=== PATIENT | female | born 1965 | race Caucasian/White ===

== ENCOUNTER 2023-09-12 09:47 | Inpatient (IN) ==
[2023-09-12] MEDS ORDERED: AMIODARONE 150MG / 100ML D5W IV ONE ×2 (10:25→10:43)
[2023-09-12] MEDS ORDERED: AMIODARONE / D5W 150 MG/100 ML BAG IV ONE ×2 (10:30→10:45)
[2023-09-12] MEDS ORDERED: AMIODARONE 360MG / 200ML D5W IV ONE (10:43)
--- NOTE | 2023-09-12 10:44 | XRay Report ---
XR chest 1V portable HISTORY: 58 years-old Female Chest pain, nonspecific COMPARISON: None TECHNIQUE: AP view of the chest FINDINGS: Cardiomediastinal and hilar silhouettes are within normal limits. No pneumothorax, pleural effusion o r airspace consolidation. Bones of the chest appear grossly intact. IMPRESSION: No acute process. ACT 112: Negative or not required by law. The above report was generated using voice recognition software. It may contain grammatical, syntax o r spelling errors. Electronically signed by: Homer Mckenna M.D. 09/12/2023 10:42 AM
--- NOTE | 2023-09-12 10:48 | Emergency Department Note ---
History of Present Illness General Chief complaint: Tachycardia Stated complaint: HYPERTENSION,TACHYCARDIA HR 214,LIGHTHEADED, Time Seen by Provider: 09/12/23 10:18 History of Present Illness 58-year-old female presents emergency department with a complaint of increased heart rate palpitations and dizziness. Patient states that she was getting ready to take her to an appointment and she suddenly had an increase in her heart rate noticed that her Fitbit said that she had a heart rate of 214. Patient does admit to 2 cups of coffee this morning. Patient has a history of hypothyroidism currently on levothyroxine and has had her TSH checked in the past 6 months. Patient denies any nausea vomiting diarrhea any recent illnesses. Patient states that she is extremely healthy and goes for runs daily. Patient denies any potential for dehydration. Patient denies chest pain or shortness of breath. There are no other mitigating or alleviating factors. Patient's had no prior history of V. tach Home Medications Medication Instructions Recorded Confirmed Type cyanocobalamin (vitamin B-12) 1,000 mcg IM MONTHLY 10/10/19 09/12/23 History 1,000 mcg/mL injection kit (B-12 Compliance) ferrous sulfate 325 mg (65 mg 325 mg PO PM 10/10/19 02/12/22 History iron) tablet (FeroSul) azelastine 137 mcg (0.1 %) nasal 1 spray intranasal BID PRN Other 11/19/19 09/12/23 History spray aerosol fluticasone propionate 50 2 spray intranasal DAILY #15.8 mL 05/20/21 02/12/22 Rx mcg/actuation nasal spray,suspension levothyroxine 112 mcg tablet 112 mcg PO DAILY 09/12/23 09/12/23 History Allergies Allergy/AdvReac Type Severity Reaction Status Date / Time Sulfa (Sulfonamide Allergy Verified 05/12/22 07:49 Antibiotics) Past Med/Surg History Medical History (Updated 09/12/23 @ 12:02 by Hero Harrison MD) Temporomandibular joint disorder Slow to wake up after anesthesia WITH SEVERE HEADACHE AFTERWARDS Hypothyroidism Migraine Surgical History History of sinus surgery left maxillary antrostomy with tissue removal-11/23/19-Dr. Umana History of colonoscopy History of hysteroscopy With endometrial ablation History of surgery Excision of finger flexor tendon LEFT HAND Family History Father Hearing loss Mother Hypertension Cancer Breast and malignant neoplasm Allergies Other No family history of bleeding disorder Social History Smoking Status: Never smoker Second Hand Exposure: Yes (mom smoked); Do You Dip or Chew Tobacco: No; Hx Alcohol Use: Yes Hx Substance Use: No Preferred Language: Uzbek Communication Ability: Effective Retort Firer Required: No Beliefs That Will Affect Care: None Current Living Situation: Spouse current occupational status: employed 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 Feels Safe at Home: Yes Assistive Devices: Glasses Review of Systems A total of 10 systems reviewed and were otherwise negative Cardiovascular: no chest pain Neurologic: + dizziness Physical Exam Vital Signs Vital Signs - 24 hr 09/12/23 10:07 09/12/23 10:20 09/12/23 10:21 Temperature 36.6 C Temperature Source Oral Pulse Rate 82 207 H 207 H Pulse Rate from SpO2 Sensor Respiratory Rate 18 18 Respiratory Effort / Characteristics Non-Labored Spontaneous Respiratory Depth Normal Blood Pressure 111/70 Blood Pressure Mean 83 Blood Pressure Position Sitting Pulse Oximetry 100 Oxygen Delivery Method Room Air Sepsis Recent Fever Within 48 Hours No Sepsis New/Unexplained Change in Mental Status N/A Sepsis Action Taken by Nursing No Action Required 09/12/23 10:21 09/12/23 10:24 09/12/23 10:30 Temperature Temperature Source Pulse Rate Pulse Rate from SpO2 Sensor Respiratory Rate Respiratory Effort / Characteristics Respiratory Depth Blood Pressure 135/107 H 134/85 Blood Pressure Mean 113 92 Blood Pressure Position Pulse Oximetry Oxygen Delivery Method Room Air Sepsis Recent Fever Within 48 Hours Sepsis New/Unexplained Change in Mental Status Sepsis Action Taken by Nursing 09/12/23 10:30 09/12/23 10:42 09/12/23 10:42 Temperature Temperature Source Pulse Rate 208 H 200 H Pulse Rate from SpO2 Sensor 90 76 Respiratory Rate 20 20 Respiratory Effort / Characteristics Respiratory Depth Blood Pressure 107/80 Blood Pressure Mean 89 Blood Pressure Position Pulse Oximetry 91 96 Oxygen Delivery Method Sepsis Recent Fever Within 48 Hours Sepsis New/Unexplained Change in Mental Status Sepsis Action Taken by Nursing 09/12/23 10:43 09/12/23 10:45 09/12/23 10:45 Temperature Temperature Source Pulse Rate 203 H Pulse Rate from SpO2 Sensor 78 Respiratory Rate 25 H Respiratory Effort / Characteristics Respiratory Depth Blood Pressure 112/83 Blood Pressure Mean 93 Blood Pressure Position Pulse Oximetry 96 97 Oxygen Delivery Method Room Air Sepsis Recent Fever Within 48 Hours Sepsis New/Unexplained Change in Mental Status Sepsis Action Taken by Nursing 09/12/23 11:00 09/12/23 11:00 09/12/23 11:15 Temperature Temperature Source Pulse Rate 198 H 202 H Pulse Rate from SpO2 Sensor 70 79 Respiratory Rate 26 H 14 Respiratory Effort / Characteristics Respiratory Depth Blood Pressure 113/80 Blood Pressure Mean 99 Blood Pressure Position Pulse Oximetry 95 98 Oxygen Delivery Method Sepsis Recent Fever Within 48 Hours Sepsis New/Unexplained Change in Mental Status Sepsis Action Taken by Nursing 09/12/23 11:22 09/12/23 11:22 09/12/23 11:22 Temperature Temperature Source Pulse Rate 80 194 H Pulse Rate from SpO2 Sensor Respiratory Rate 27 H Respiratory Effort / Characteristics Respiratory Depth Blood Pressure 106/65 Blood Pressure Mean 68 Blood Pressure Position Pulse Oximetry Oxygen Delivery Method Sepsis Recent Fever Within 48 Hours Sepsis New/Unexplained Change in Mental Status Sepsis Action Taken by Nursing 09/12/23 11:23 09/12/23 11:23 09/12/23 11:30 Temperature Temperature Source Pulse Rate 80 74 Pulse Rate from SpO2 Sensor 81 77 Respiratory Rate 20 23 Respiratory Effort / Characteristics Respiratory Depth Blood Pressure 104/73 Blood Pressure Mean 90 Blood Pressure Position Pulse Oximetry 100 100 Oxygen Delivery Method Sepsis Recent Fever Within 48 Hours Sepsis New/Unexplained Change in Mental Status Sepsis Action Taken by Nursing 09/12/23 11:30 09/12/23 11:34 09/12/23 11:45 Temperature Temperature Source Pulse Rate 200 H 67 Pulse Rate from SpO2 Sensor 68 Respiratory Rate 23 Respiratory Effort / Characteristics Respiratory Depth Blood Pressure 121/84 Blood Pressure Mean 96 Blood Pressure Position Pulse Oximetry 100 Oxygen Delivery Method Sepsis Recent Fever Within 48 Hours Sepsis New/Unexplained Change in Mental Status Sepsis Action Taken by Nursing 09/12/23 11:45 Temperature Temperature Source Pulse Rate Pulse Rate from SpO2 Sensor Respiratory Rate Respiratory Effort / Characteristics Respiratory Depth Blood Pressure 121/79 Blood Pressure Mean 99 Blood Pressure Position Pulse Oximetry Oxygen Delivery Method Sepsis Recent Fever Within 48 Hours Sepsis New/Unexplained Change in Mental Status Sepsis Action Taken by Nursing GENERAL: Patient is awake alert in no acute distress patient is resting comfortably and showing no signs of anxiety EYES: The conjunctivae are clear. The pupils are round and reactive. EARS, NOSE, MOUTH AND THROAT: The nose is without any evidence of any deformity. Mucous membranes are moist. Tongue is midline. NECK: The neck is nontender and supple. RESPIRATORY: Normal respiratory effort is noted there is no evidence of wheezing rhonchi or rales CARDIOVASCULAR: Tachycardic, regular noted there no murmurs rubs or gallops normal S1 normal S2. GASTROINTESTINAL: The abdomen is soft. Abdomen is nontender. BACK: No midline tenderness or or step-off noted range of motion in flexion extension as well as rotation no signs of muscle spasm noted MUSCULOSKELETAL/EXTREMITIES: There is no evidence of gross deformity full range of motion is noted in the hips and shoulders. SKIN: There is no obvious evidence of any rash. There are no petechiae, pallor or cyanosis noted. NEUROLOGIC: Patient is awake alert and oriented x3 strength is symmetric Psych; Mildly anxious Course Reevaluation(s) Reevaluation #1: Patient was started on IV amiodarone, was also given metoprolol, had an episode in which she converted to sinus rhythm after being on a bedpan to urinate. Cardiology was at bedside we are actually preparing to cardiovert this patient with procedural sedation as well. Patient is hemodynamically stable at 1146 Time: 11:46 Reevaluation #2: Patient reevaluated by me at bedside patient is in no distress currently patient is in a sinus rhythm and he is normotensive. Time: 12:12 Consultations Consultation #1: Case was discussed with Dr. Hinton at 11:05 AM - will see patient at bedside Time: 11:15 Consultation #2: Case was discussed with Dr. Peter for admission Time: 11:50 Administered Medications Amiodarone HCl/Dextrose (Nexterone / D5w) 360 mg in 200 mls @ 33.333 mls/hr IV .Q6H [facility] Stop: 09/12/23 17:14 Last Admin: 09/12/23 11:33 Dose: Not Given Documented By: HS Discontinued Medications Amiodarone HCl/Dextrose (Amiodarone 150mg / 100ml D5w) Confirm Administered Dose 150 mg IV .STK-MED ONE Stop: 09/12/23 10:26 Last Admin: 09/12/23 10:31 Dose: 150 mg Documented By: AMS Co-signed By: AK Amiodarone HCl/Dextrose (Amiodarone 360mg / 200ml D5w) Confirm Administered Dose 360 mg IV .STK-MED ONE Stop: 09/12/23 10:44 Last Admin: 09/12/23 11:10 Dose: 360 mg Documented By: AMS Co-signed By: HS Amiodarone HCl/Dextrose (Amiodarone 150mg / 100ml D5w) Confirm Administered Dose 150 mg IV .STK-MED ONE Stop: 09/12/23 10:44 Last Admin: 09/12/23 10:54 Dose: 150 mg Documented By: AMS Co-signed By: AK Etomidate (Etomidate 2 Mg/Ml 20 Ml Vial) Confirm Administered Dose 40 mg IV .STK-MED ONE Stop: 09/12/23 11:20 Last Admin: 09/12/23 11:35 Dose: Not Given Documented By: HS Amiodarone HCl/Dextrose (Nexterone / D5w) 150 mg in 100 mls @ 600 mls/hr IV TODAY@1030 ONE Stop: 09/12/23 10:39 Last Admin: 09/12/23 11:34 Dose: Not Given Documented By: HS Amiodarone HCl/Dextrose (Nexterone / D5w) 150 mg in 100 mls @ 600 mls/hr IV .EXTRA DOSE ONE Stop: 09/12/23 10:54 Last Admin: 09/12/23 11:34 Dose: Not Given Documented By: HS Metoprolol Tartrate (Metoprolol Tartrate 1 Mg/Ml Vial) Confirm Administered Dose 5 mg IV .STK-MED ONE Stop: 09/12/23 11:13 Last Admin: 09/12/23 11:35 Dose: Not Given Documented By: HS Metoprolol Tartrate (Metoprolol Tartrate 1 Mg/Ml Vial) 2.5 mg IV NOW STA Stop: 09/12/23 11:16 Last Admin: 09/12/23 11:34 Dose: 2.5 mg Documented By: HS Critical Care Time Critical Care Time: Yes Total Critical Care Time: 45 I have personally spent greater than 45 minutes of critical care time in the direct management of this patient. This includes bedside care, interpretation of diagnostic studies, and testing, discussion with consultants, patient, and family members, and other required patient management activities. These minutes are in excess of all separately billable procedures. Medical Decision Making Medical Records Attestation: I reviewed the patient's medical records. Home Medications Current Medication List: was personally reviewed by me Laboratory Data Attestation: I reviewed the patient's lab results. Labs interpreted by me are unremarkable 09/12/23 10:15 09/12/23 10:15 Lab Results 09/12/23 Range/Units 10:15 WBC 6.08 (4.8-10.8) K/ul RBC 5.44 H (4.20-5.40) M/uL Hgb 15.9 (12.0-16.0) g/dl Hct 47.7 H (37.0-47.0) % MCV 87.7 (80.0-100.0) fL MCH 29.2 (25.0-34.0) pg MCHC 33.3 (32.0-36.0) g/dL RDW Std Deviation 40.1 (36.4-46.3) fL RDW Coeff of Bethany 12.5 (11.5-14.5) % Plt Count 249 (130-400) K/uL MPV 11.0 (9.4-12.4) fL Immature Gran % (Auto) 0.3 % Neut % (Auto) 61.7 % Lymph % (Auto) 27.6 % Labette % (Auto) 8.1 % Eos % (Auto) 1.0 % Baso % (Auto) 1.3 % Neut # (Auto) 3.75 (1.40-6.50) K/uL Lymph # (Auto) 1.68 (1.20-3.40) K/uL Labette # (Auto) 0.49 (0.11-0.59) K/uL Eos # (Auto) 0.06 (0.00-0.50) K/uL Baso # (Auto) 0.08 (0.00-0.20) K/uL Immature Gran # (Auto) 0.02 (0.01-0.20) K/uL PT 11.1 (9.0-12.0) Seconds INR 1.0 (0.9-1.1) APTT 29.3 (21.0-31.0) Seconds PTT Ratio 1.0 D-Dimer 330 (0-500) ug/L FEU Sodium 139 (136-145) mmol/L Potassium 4.2 (3.5-5.1) mmol/L Chloride 103 (98-107) mmol/L Carbon Dioxide 28 (21-32) mmol/L Anion Gap 8 (3-11) BUN 19 (6-23) mg/dl Creatinine 0.83 (0.6-1.2) mg/dl Est Cr Clr Drug Dosing 73.6 ml/min Est GFR ( Amer) 89.5 ml/min Est GFR (Non-Af Amer) 77.2 ml/min BUN/Creatinine Ratio 22.9 H (10-20) Glucose 113 H (70-99(Fasting)) mg/dl Calcium 10.0 (8.6-10.3) mg/dl Magnesium 2.2 (1.7-2.4) mg/dl Total Bilirubin 1.6 H (0.2-1.0) mg/dl AST 18 (13-39) U/L ALT 13 (7-52) U/L Alkaline Phosphatase 90 (34-104) U/L Troponin I High Sens 4.2 (0-14) pg/ml Total Protein 7.6 (6.0-8.3) gm/dl Albumin 4.9 (3.4-5.0) gm/dl Globulin 2.7 (2.5-4.0) gm/dl Albumin/Globulin Ratio 1.8 (0.9-2) Lipase 35 (11-82) U/L TSH 0.517 (0.300-4.500) uIu/ml Imaging Data Attestation: I personally reviewed and interpreted this imaging study as follows: My Impression: Chest x-ray interpreted by me unremarkable Radiologist's Impression: Chest X-Ray 09/12/23 10:19 XR chest 1V portable HISTORY: 58 years-old Female Chest pain, nonspecific COMPARISON: None TECHNIQUE: AP view of the chest FINDINGS: Cardiomediastinal and hilar silhouettes are within normal limits. No pneumothorax, pleural effusion or airspace consolidation. Bones of the chest appear grossly intact. IMPRESSION: No acute process. ACT 112: Negative or not required by law. The above report was generated using voice recognition software. It may contain grammatical, syntax or spelling errors. Electronically signed by: Homer Mckenna M.D. 09/12/2023 10:42 AM ECG Data Attestation: I personally reviewed and interpreted this ECG as follows: Additional Comments: EKG interpreted by me wide-complex tachycardia with a rate of 204 versus SVT with a Spence C, no obvious ST segment elevation can be seen due to tachycardia, normal axis EKG #2 at 11:26 AM, interpreted by me, the patient has a sinus rhythm with a first-degree AV block with occasional PVCs no obvious ST segment elevation or depression, normal axis Telemetry was ordered by me, interpreted as wide-complex tachycardia rate of 208 MDM Narrative Medical decision making differential diagnosis includes ventricular tachycardia, SVT with aberrancy, wide-complex tachycardia, hypothyroidism, electrolyte abnormality, metabolic derangement, acute coronary syndrome Plan is to check labs, EKG, chest x-ray Patient was started on amiodarone due to the monomorphic wide-complex tachycardia. The case was discussed with cardiology from [facility], they were at bedside patient as well. Patient has no evidence of thyroid storm or significant hypothyroidism at this time. The etiology of the patient's cardiac dysrhythmia is currently unknown. Patient will be admitted for further investigation. Patient is hemodynamically stable for admission at 12 PM Pt heart score is a 3 I have reviewed the patient's prior electrolytes from the past 2 years. The patient's at bedside provided me bedside history of the patient having an increased heart rate after they were getting ready to go to his actual rn case management appointment today Disposition plan is to admit for further cardiac evaluation Impression & Plan Wide-complex tachycardia Discharge Plan Visit Data Chief Complaint: Tachycardia Stated Complaint: HYPERTENSION,TACHYCARDIA HR 214,LIGHTHEADED, ED Provider: Jonathan Cespedes Discharge Problem: Wide-complex tachycardia Patient Disposition: Admitted As Inpatient Forms Stand Alone Forms: My [facility] Prescriptions Prescriptions: No Action fluticasone propionate 50 mcg/actuation spray,suspension 2 spray intranasal DAILY Qty: 15.8 6RF Rx Instructions: not able to verify administer 2 sprays into each nostril daily ferrous sulfate [FeroSul] 325 mg (65 mg iron) tablet 325 mg PO PM Rx Instructions: not able to verify B-12 Compliance 1,000 mcg/mL kit 1,000 mcg IM MONTHLY azelastine 137 mcg (0.1 %) aerosol,spray 1 spray INTNAS BID PRN (Reason: Other) levothyroxine 112 mcg tablet 112 mcg PO DAILY Referrals Referrals: Anselmo Huffman MD [Primary Care Provider] -
[2023-09-12 10:57] LABS: Basophils # (auto) 0.08 K/uL (0.00-0.20); Basophils % (auto) 1.3 %; Eosinophils # (auto) 0.06 K/uL (0.00-0.50); Hematocrit (blood only) 47.7 % (37.0-47.0); Hemoglobin 15.9 g/dl (12.0-16.0); Immature Granulocytes # (auto) 0.02 K/uL (0.01-0.20); Immature Granulocytes % (auto) 0.3 %; Lymphocytes # (auto) 1.68 K/uL (1.20-3.40); Lymphocytes % (auto) 27.6 %; Mean Corpuscular Hemoglobin 29.2 pg (25.0-34.0); Mean Corpuscular Hgb Conc 33.3 g/dL (32.0-36.0); Mean Corpuscular Volume 87.7 fL (80.0-100.0); Monocytes # (auto) 0.49 K/uL (0.11-0.59); Monocytes % (auto) 8.1 %; Neutrophils # (auto) 3.75 K/uL (1.40-6.50); Neutrophils % (auto) 61.7 %; Platelet Count 249 K/uL (130-400); RDW Coefficient of Variation 12.5 % (11.5-14.5); RDW Standard Deviation 40.1 fL (36.4-46.3); Red Blood Count 5.44 M/uL (4.20-5.40); White Blood Count 6.08 K/ul (4.8-10.8)
[2023-09-12 11:02] LABS: Albumin Globulin Ratio 1.8 (0.9-2); Albumin Level 4.9 gm/dl (3.4-5.0); BUN Creatinine Ratio 22.9 (10-20); Bilirubin,Total 1.6 mg/dl (0.2-1.0); Creatinine Clr Calc Pharmacy 73.6 ml/min; Est GFR (African American) 89.5 ml/min; Est GFR (Non-African American) 77.2 ml/min; Globulin 2.7 gm/dl (2.5-4.0); Magnesium 2.2 mg/dl (1.7-2.4); Potassium 4.2 mmol/L (3.5-5.1); Total Protein 7.6 gm/dl (6.0-8.3)
[2023-09-12 11:06] LABS: Troponin I High Sensitivity 4.2 pg/ml (0-14)
[2023-09-12 11:09] LABS: D Dimer 330 ug/L FEU (0-500); Partial Thromboplastin Time 29.3 Seconds (21.0-31.0); Prothrombin Time 11.1 Seconds (9.0-12.0)
[2023-09-12] MEDS ORDERED: METOPROLOL TARTRATE 1 MG/ML VIAL IV ONE (11:12)
[2023-09-12 11:15] LABS: Thyroid Stimulating Hormone 0.517 uIu/ml (0.300-4.500)
[2023-09-12] MEDS ORDERED: AMIODARONE / D5W 360 MG/200 ML BAG IV SCH ×2 (11:15→17:15)
[2023-09-12] MEDS ORDERED: METOPROLOL TARTRATE 1 MG/ML VIAL IV STA (11:15)
[2023-09-12] MEDS ORDERED: ETOMIDATE 2 MG/ML 20 ML VIAL IV ONE (11:19)
--- NOTE | 2023-09-12 12:07 | History & Physical Report ---
Date of Service September 12, 2023 Assessment & Plan (1) Wide-complex tachycardia: Plan: Wide-complex monomorphic tachycardia No inciting trauma, no anginal/ischemic symptoms, avid runner with good exercise tolerance. No recent illness. Magnesium/potassium normal is with hyperthyroidism with down titration of Synthroid due to borderline suppressed TSH levels as noted. No evidence of PE/DD negative.Trop wnl. Converted after 300 mg total load of amiodarone without electrical cardioversion. +receive 2.5 mg IV Lopressor with subsequent borderline hypotension, defer additional beta-hafsa per discussion with cardiology. continue amiodarone drip Echo pending. May require EP study, cardiology continuing to follow. Appreciate recommendations. Clears while eval for this pending. Optimize magnesium 4.0, magnesium 2.0 Chest pain-free on reevaluation EKG postconversion consistent with sinus, PVC is noted (2) Hypothyroidism: Plan: TSH is normal, free T4 is pending. Synthroid was down titrated as an outpatient from 150 mcg 10/21 to 137 mcg 01/20, 125mcg 04/22, 112 mcg 06/22. TSH remains borderline suppressed, will hold x1 and resume at 100 mcg 09/13 (3) Pernicious anemia: Plan: - Continue outpatient monthly B12 supplementation. Hemoglobin 15.9, normocytic on admit Plan DVT prophylaxis: Lovenox Disposition: PCU CODE STATUS: Full code Diet: Clears pending echo and evaluation for EP followup study History of Present Illness Primary Care Provider: Anselmo Huffman MD Gem is a 58yo F with a past medical history of sinusitis recently completing 10 days of Augmentin 1 month ago, insomnia on trazodone as needed, hypothyroidism recently with TSH down titrated at last PCP visit who presents with wide-complex tachycardia with rates greater than 200. She received 2 boluses of amiodarone 150 for 300 total and subsequent drip was started, she was pending electrical cardioversion when she converted to sinus rhythm with micturition. Etomidate was ordered but not given, she did not require electrical cardioversion. She does not have any history of tachyarrhythmia. Potassium is normal, magnesium is 2.2. Gem is seen at the bedside while in the ER. She reports she was with her at Dr. Duvall ophthalmology office for an appointment for her for cataract evaluation and was noted to have a heart rate of over 200. She notes her exercise monitor also had indicated that she had had a heart rate of between 190 and 200 just since that morning. She did not have any chest pain or chest pressure, but did have a feeling of her heart racing. No shortness of breath. She reports that she has not had any exertional chest pain or shortness of breath leading up to this episode, and she is an avid runner with no issues with exercise tolerance. She does have a history of hyperthyroidism for which her Synthroid is gradually being down titrated due to borderline low TSH levels. She takes a B12 supplement for pernicious anemia, otherwise has no medical problems and specifically has no history of hypertension, hyperlipidemia, diabetes, A-fib, a flutter, or arrhythmia. No family history of SCD, parents with history of atrial arrhythmia/atrial fibrillation in older age. At bedside she feels completely back to normal. While in the ER she received amiodarone and a dose of metoprolol IV 2.5 as noted. She has converted to sinus rhythm, did become borderline hypotensive in the low 100s systolics with metoprolol but on recheck feels well with a systolic pressure of 120s on reassessment Medical History: Reviewed Medications: Reviewed Surgical History: Reviewed Family history: Reviewed Allergies: Reviewed Social History: No tobacco/etoh/rec drug use Code Status: Full Allergies Allergy/AdvReac Type Severity Reaction Status Date / Time Sulfa (Sulfonamide Allergy Verified 05/12/22 07:49 Antibiotics) Home Medications Medication Instructions Recorded Confirmed Type cyanocobalamin (vitamin B-12) 1,000 mcg IM MONTHLY 10/10/19 09/12/23 History 1,000 mcg/mL injection kit (B-12 Compliance) ferrous sulfate 325 mg (65 mg 325 mg PO PM 10/10/19 02/12/22 History iron) tablet (FeroSul) azelastine 137 mcg (0.1 %) nasal 1 spray intranasal BID PRN Other 11/19/1909/12 History spray aerosol fluticasone propionate 50 2 spray intranasal DAILY #15.8 mL 05/20/21 02/12/22 Rx mcg/actuation nasal spray,suspension levothyroxine 112 mcg tablet 112 mcg PO DAILY 09/12/23 09/12/23 History Past Med/Surg History Medical History (Updated 09/12/23 @ 12:02 by Hero Harrison MD) Temporomandibular joint disorder Slow to wake up after anesthesia WITH SEVERE HEADACHE AFTERWARDS Hypothyroidism Migraine Surgical History History of sinus surgery left maxillary antrostomy with tissue removal-11/23/19-Dr. Umana History of colonoscopy History of hysteroscopy With endometrial ablation History of surgery Excision of finger flexor tendon LEFT HAND Family History Father Hearing loss Mother Hypertension Cancer Breast and malignant neoplasm Allergies Other No family history of bleeding disorder Social History Smoking Status: Never smoker Second Hand Exposure: Yes (mom smoked); Do You Dip or Chew Tobacco: No; Hx Alcohol Use: Yes Hx Substance Use: No Preferred Language: Iranian Communication Ability: Effective Television News Reporter Required: No Beliefs That Will Affect Care: None Current Living Situation: Spouse current occupational status: employed 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 NAD. Cooperative. HEENT: Atraumatic, normocephalic. Vision/hearing intact Pulm: CTAB A&P. -wheezes, -rales, -rhonchi. Symmetrical chest rise. No increased work of breathing. No respiratory distress. Cardiac: RRR, -mrg. Radial pulses intact and symmetrical. Abdominal: Nontender, nondistended, soft. BS present. Ext: warm, dry. No edema. Results & Data Results & Data Vital Signs (Past 12 Hours) Vital Signs Temp Pulse Resp BP Pulse Ox O2 Del Method 09/12/23 11:45 121/79 09/12/23 11:45 67 23 100 09/12/23 11:34 200 H 09/12/23 11:30 121/84 09/12/23 11:30 74 23 100 09/12/23 11:23 80 20 100 09/12/23 11:23 104/73 09/12/23 11:22 194 H 27 H 09/12/23 11:22 106/65 09/12/23 11:22 80 11/13/23 11:15 202 H 14 98 09/12/23 11:00 198 H 26 H 95 09/12/23 11:00 113/80 09/12/23 10:45 112/83 09/12/23 10:45 203 H 25 H 97 09/12/23 10:43 96 Room Air 09/12/23 10:42 200 H 20 96 09/12/23 10:42 107/80 09/12/23 10:30 208 H 20 91 09/12/23 10:30 134/85 09/12/23 10:24 Room Air 09/12/23 10:21 135/107 H 09/12/23 10:21 207 H 18 09/12/23 10:20 207 H 09/12/23 10:07 36.6 C 82 18 111/70 100 Room Air PG Care Time/CCT Total # of Minutes Spent Total Time Spent with Patient: Total time spent is greater than 50% in coordination of care (as documented) at patient's floor/unit and/or counseling patient: Coding Level of Care Code 40788 INT INP/OBS CARE 3/75MIN Diagnoses Wide-complex tachycardia R00.0 Hypothyroidism E03.9 Pernicious anemia D51.0
--- NOTE | 2023-09-12 14:02 | Cardiology Consultation ---
Date of Consultation September 12, 2023 Assessment & Plan (1) Wide-complex tachycardia: Plan 58-year-old generally healthy woman with abrupt onset wide-complex tachycardia with no significant prodrome or evidence of metabolic or other precipitating factors. Unclear whether vagal stimulus from need to urinate or medications (amiodarone/metoprolol) or combination resulted in reversion to sinus rhythm. Initially IV amiodarone continued to ensure rhythm control, since her rhythm has been quiescent for a number of hours now could transition to oral beta-hafsa therapy. Recommend metoprolol tartrate 25 mg p.o. every 6 hours (hold for SBP<85 mmHG or HR<45 bpm), could stop IV amiodarone after first oral dose of metoprolol given. Some degree of mild sinus bradycardia may need to be tolerated given her athletic physiology and baseline low heart rate. Review of ECG with Dr. Liao and Dr. Morales suggests RVOT type ventricular tachycardia (also known as repetitive monomorphic VT). 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 Echocardiogram was unremarkable, no evidence of underlying structural heart disease. Continue on telemetry overnight while shifting from amiodarone to oral beta- hafsa, if she tolerates medication well without further dysrhythmia or major ectopy she likely could be discharged home tomorrow with outpatient plans for VT ablation at [facility]. History of Present Illness Reason for Consultation: Wide-complex tachycardia. Requesting Physician: Jonathan Cespedes DO Attending Physician: Hero Tobin MD History of Present Illness Generally healthy 58-year-old with no cardiac history or onset of tachypalpitations 8:30 AM with both Fitbit and cardiac monitoring indicating heart rate greater than 200 bpm, and ECG showing wide-complex tachycardia who was admitted for further cardiac evaluation. At recent baseline, she is generally very healthy and runs up to 3 miles at a time fairly routinely as well as periodically in half marathons. She has not noted any chest discomfort, dyspnea on exertion, or prior palpitations. Althou gh she had no symptoms aside from tachypalpitations, given the extremely high heart rates she reported to the emergency department where she received 2 boluses of amiodarone 150 mg and initiation of maintenance infusion and 2.5 mg of IV metoprolol. She maintained a low normal BP during this time and felt reasonably well. However, she had increasing sensation of a full bladder and began to feel "queasy" and lightheaded, sedation was ordered (but not administered) for potential electrical cardioversion when she abruptly converted to sinus rhythm at 86 bpm with infrequent PVCs. Medical history notable for hypothyroidism (on replacement). Family history negative for dysrhythmias or sudden cardiac . Grandparents with CHF. Subsequently, she recovered to the point that she felt well and had no somatic complaints. Telemetry over the last few hours has been completely benign. Allergies Allergy/AdvReac Type Severity Reaction Status Date / Time Sulfa (Sulfonamide Allergy Verified 05/12/22 07:49 Antibiotics) Home Medications Medication Instructions Recorded Confirmed Type cyanocobalamin (vitamin B-12) 1,000 mcg IM MONTHLY 10/10/19 09/12/23 History 1,000 mcg/mL injection kit (B-12 Compliance) ferrous sulfate 325 mg (65 mg 325 mg PO PM 10/10/19 02/12/22 History iron) tablet (FeroSul) azelastine 137 mcg (0.1 %) nasal 1 spray intranasal BID PRN Other 11/19/19 09/12/23 History spray aerosol fluticasone propionate 50 2 spray intranasal DAILY #15.8 mL 05/20/21 02/12/22 Rx mcg/actuation nasal spray,suspension levothyroxine 112 mcg tablet 112 mcg PO DAILY 09/12/23 09/12/23 History trazodone 50 mg tablet 25 mg PO HS PRN INSOMNIA 09/12/23 09/12/23 History Patient History Medical History Temporomandibular joint disorder Slow to wake up after anesthesia WITH SEVERE HEADACHE AFTERWARDS Hypothyroidism Migraine Surgical History History of sinus surgery left maxillary antrostomy with tissue removal-11/23/19-Dr. Umana History of colonoscopy History of hysteroscopy With endometrial ablation History of surgery Excision of finger flexor tendon LEFT HAND Family History Father Hearing loss Mother Hypertension Cancer Breast and malignant neoplasm Allergies Other No family history of bleeding disorder Social History Smoking Status: Never smoker Second Hand Exposure: Yes (mom smoked); Do You Dip or Chew Tobacco: No; Hx Alcohol Use: Yes Hx Substance Use: No Preferred Language: Burkinan Communication Ability: Effective Corrosion Control Engineer Required: No Beliefs That Will Affect Care: None Current Living Situation: Spouse current occupational status: employed 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 BP normotensive. Pulse 68 bpm and regular. Skin: no ecchymoses or generalized lesions. HEENT: unremarkable. Neck: JVP at the clavicle at 90 degrees, no carotid bruits. Lungs: clear. Cardiac: regular rhythm, normal S1-2, no murmur. Abdomen: benign. Extremities: no edema, pulses intact. Neurologic: normal affect and conversation, nonfocal. Results & Data Laboratory Results Troponin 4.2. Normal CBC. Normal electrolytes with potassium 4.2 and magnesium 2.2, BUN 19, creatinine 0.83. TSH 0.517. Diagnostic Findings Initial ECG showed monomorphic wide-complex tachycardia at 205 bpm. Repeat ECG after conversion showed sinus rhythm at 74 bpm with occasional PVCs and PACs. Normal QTc, no evidence of Brugada or other baseline abnormality. Chest x-ray showed top normal heart size, otherwise unremarkable. Echocardiogram showed normal left ventricular size with low normal systolic function (EF 50 to 55%) with normal wall motion and normal mitral inflow pattern. Normal RV size and systolic function. Mild tricuspid regurgitation with normal right ventricular systolic pressure. No prior study for comparison. PG Care Time/CCT Total # of Minutes Spent Total Time Spent with Patient: Total time spent is greater than 50% in coordination of care (as documented) at patient's floor/unit and/or counseling patient: Coding Level of Care Code 73903 IN/OBS CONSULT LVL 4,60M Diagnoses Wide-complex tachycardia R00.0
[2023-09-12] MEDS ORDERED: ACETAMINOPHEN 325 MG TAB PO PRN (14:05)
--- NOTE | 2023-09-12 15:32 | XCELERA ---
[id number]
--- NOTE | 2023-09-12 16:36 | Electrocardiogram Report ---
Test Reason : Blood Pressure : / mmHG Vent. Rate : 209 BPM Atrial Rate : 000 BPM P-R Int : 000 ms QRS Dur : 186 ms QT Int : 296 ms P-R-T Axes : 000 105 235 degrees QTc Int : 552 ms Wide QRS tachycardia - possibly RVOT ventricular tachycardia Rightward axis Left bundle branch block /Inferior axis Abnormal ECG When compared with ECG of 13-NOV-2019 13:02, Wide QRS tachycardia has replaced Sinus rhythm Vent. rate has increased BY 151 BPM Confirmed by Jeffery Hinton ([id number]) on 09/12/2023 4:36:09 PM Referred By: REFERRED SELF Confirmed By:Jeffery Hinton
--- NOTE | 2023-09-12 16:38 | Electrocardiogram Report ---
Test Reason : Blood Pressure : / mmHG Vent. Rate : 074 BPM Atrial Rate : 074 BPM P-R Int : 256 ms QRS Dur : 078 ms QT Int : 394 ms P-R-T Axes : 087 031 054 degrees QTc Int : 437 ms Sinus rhythm with 1st degree A-V block with Premature supraventricular complexes and with occasional Premature ventricular complexes Abnormal ECG When compared with ECG of 12-Sep-2023 10:16; Wide QRS tachycardia no longer present HR has decreased by 135 bpm Confirmed by Jeffery Hinton ([id number]) on 09/12/2023 4:37:49 PM Referred By: REFERRED SELF Confirmed By:Jeffery Hinton
[2023-09-12] MEDS: METOPROLOL TARTRATE 25 MG TAB PO SCH ×2 (17:12→23:41)
[2023-09-13] MEDS: METOPROLOL TARTRATE 25 MG TAB PO SCH ×2 (06:35→11:40)
[2023-09-13 08:31] LABS: Basophils # (auto) 0.05 K/uL (0.00-0.20); Eosinophils # (auto) 0.07 K/uL (0.00-0.50); Eosinophils % (auto) 1.4 %; Hematocrit (blood only) 43.5 % (37.0-47.0); Hemoglobin 14.3 g/dl (12.0-16.0); Immature Granulocytes # (auto) 0.01 K/uL (0.01-0.20); Immature Granulocytes % (auto) 0.2 %; Lymphocytes # (auto) 1.22 K/uL (1.20-3.40); Lymphocytes % (auto) 24.7 %; Mean Corpuscular Hemoglobin 28.9 pg (25.0-34.0); Mean Corpuscular Hgb Conc 32.9 g/dL (32.0-36.0); Mean Corpuscular Volume 87.9 fL (80.0-100.0); Monocytes # (auto) 0.41 K/uL (0.11-0.59); Monocytes % (auto) 8.3 %; Neutrophils # (auto) 3.17 K/uL (1.40-6.50); Neutrophils % (auto) 64.4 %; Platelet Count 200 K/uL (130-400); RDW Coefficient of Variation 12.4 % (11.5-14.5); RDW Standard Deviation 39.8 fL (36.4-46.3); Red Blood Count 4.95 M/uL (4.20-5.40); White Blood Count 4.93 K/ul (4.8-10.8)
[2023-09-13 08:40] LABS: BUN Creatinine Ratio 19.5 (10-20); Calcium 9.5 mg/dl (8.6-10.3); Creatinine Clr Calc Pharmacy 74.5 ml/min; Est GFR (African American) 90.8 ml/min; Est GFR (Non-African American) 78.3 ml/min; Potassium 3.9 mmol/L (3.5-5.1)
--- NOTE | 2023-09-13 11:58 | Cardiology Progress Note ---
Date of Service September 13, 2023 Assessment & Plan (1) Ventricular tachycardia: Plan As noted, patient appears to have structurally normal heart with RVOT type ventricular tachycardia which should be responsive to beta-hafsa therapy. Recommend changing metoprolol to metoprolol succinate 50 mg daily. Okay for discharge, follow-up with Dr. Liao in 1 month. He will arrange follow-up with [facility] lead cook (likely Dr. Brown) for ventricular tachycardia ablation evaluation. Given the patient's athletic lifestyle, this may be a preferable option to lifelong beta-hafsa therapy. Admission and Anticipated Discharge Date Admission Date: September 12, 2023 Subjective Uneventful night. No recurrence of dysrhythmia. Brief ventricular ectopy for short period after conversion to sinus yesterday, no significant ectopy overnight. She feels well. No chest pain, dyspnea, palpitations, or lightheadedness. Physical Exam Physical Exam: No distress. BP normotensive (111/80 mmHg). Pulse 59 bpm and regular without ectopy. Skin: no ecchymoses or generalized lesions. HEENT: unremarkable. Neck: JVP at the clavicle at 90 degrees, no carotid bruits. Lungs: clear. Cardiac: regular rhythm, normal S1-2, no murmur. Abdomen: benign. Extremities: no edema, pulses intact. Neurologic: normal affect and conversation, nonfocal. Results & Data Vital Signs (Past 12 Hours) Vital Signs Temp Pulse Pulse Resp BP BP Pulse Ox 09/13/23 11:33 98.6 F 59 L 18 111/71 111/80 98 09/13/23 10:07 58 L 09/13/23 07:57 98.6 F 59 L 18 111/80 98 09/13/23 04:32 98.1 F 57 L 14 111/71 98 O2 Del Method 09/13/23 11:33 09/13/23 10:07 09/13/23 07:57 Room Air 09/13/23 04:32 Room Air Laboratory Results Normal electrolytes, BUN 16, creatinine 0.82. PG Care Time/CCT Total # of Minutes Spent Total Time Spent with Patient: Total time spent is greater than 50% in coordination of care (as documented) at patient's floor/unit and/or counseling patient: Coding Level of Care Code 18170 SUB INP/OBS CARE 2/35MIN Diagnoses Ventricular tachycardia I47.20
--- NOTE | 2023-09-13 12:31 | Discharge Summary ---
Date of Service September 13, 2023 Admission HPI Per Admitting Provider Gem is a 58yo F with a past medical history of sinusitis recently completing 10 days of Augmentin 1 month ago, insomnia on trazodone as needed, hypothyroidism recently with TSH down titrated at last PCP visit who presents with wide-complex tachycardia with rates greater than 200. She received 2 boluses of amiodarone 150 for 300 total and subsequent drip was started, she was pending electrical cardioversion when she converted to sinus rhythm with micturition. Etomidate was ordered but not given, she did not require electrical cardioversion. She does not have any history of tachyarrhythmia. Potassium is normal, magnesium is 2.2. Gem is seen at the bedside while in the ER. She reports she was with her at Dr. Duvall ophthalmology office for an appointment for her for cataract evaluation and was noted to have a heart rate of over 200. She notes her exercise monitor also had indicated that she had had a heart rate of between 190 and 200 just since that morning. She did not have any chest pain or chest pressure, but did have a feeling of her heart racing. No shortness of breath. She reports that she has not had any exertional chest pain or shortness of breath leading up to this episode, and she is an avid runner with no issues with exercise tolerance. She does have a history of hyperthyroidism for which her Synthroid is gradually being down titrated due to borderline low TSH levels. She takes a B12 supplement for pernicious anemia, otherwise has no medical problems and specifically has no history of hypertension, hyperlipidemia, diabetes, A-fib, a flutter, or arrhythmia. No family history of SCD, parents with history of atrial arrhythmia/atrial fibrillation in older age. At bedside she feels completely back to normal. While in the ER she received amiodarone and a dose of metoprolol IV 2.5 as noted. She has converted to sinus rhythm, did become borderline hypotensive in the low 100s systolics with metoprolol but on recheck feels well with a systolic pressure of 120s on reassessment Medical History: Reviewed Medications: Reviewed Surgical History: Reviewed Family history: Reviewed Allergies: Reviewed Social History: No tobacco/etoh/rec drug use Code Status: Full Principal Diagnosis wide complex tachycardia Discharge Exam The patient is awake, alert and oriented 3, well developed and well nourished, normocephalic and atraumatic, lying in bed and in no acute distress. HEENT--PERRL, EOMI, mucous membranes and oropharynx mildly dry Neck--supple. No JVD. No bruits. Thyroid normal, trachea midline, no adenopathy. Heart--normal S1 and S2. No murmurs, rubs or gallops. Lungs--clear bilaterally, no respiratory distress, no accessory muscle use. Abdomen--normal bowel sounds and soft. Mild epigastric and left sided abdominal pain Extremities--no cyanosis or clubbing. No edema. Dermatologic--normal skin turgor, normal color, no abnormal lymph nodes, no rash. Neurologic--cranial nerves II through XII grossly intact. Rheumatologic--normal range of motion. Psychiatric--normal affect. Discharge Data Allergies Allergy/AdvReac Type Severity Reaction Status Date / Time Sulfa (Sulfonamide Allergy Verified 05/12/22 07:49 Antibiotics) Consultations 09/12/23 11:29 ED Decision to Admit Stat 09/12/23 14:05 Consult Cardiology Routine Hospital Course (1) Wide-complex tachycardia: Wide-complex monomorphic tachycardia No inciting trauma, no anginal/ischemic symptoms, avid runner with good exercise tolerance. No recent illness. Magnesium/potassium normal is with hyperthyroidism with down titration of Synthroid due to borderline suppressed TSH levels as noted. No evidence of PE/DD negative.Trop wnl. Converted after 300 mg total load of amiodarone without electrical cardioversion. +receive 2.5 mg IV Lopressor with subsequent borderline hypotension, defer additional beta-hafsa per discussion with cardiology. continue amiodarone drip Echo pending. May require EP study, cardiology continuing to follow. Appreciate recommendations. Clears while eval for this pending. Optimize magnesium 4.0, magnesium 2.0 Chest pain-free on reevaluation EKG postconversion consistent with sinus, PVC is noted -Evaluated by cardiology, suggest d/c on metoprolol Succinate 50mg daily -Outpatient follow up with Dr Noble for ablation (2) Hypothyroidism: TSH is normal, free T4 is pending. Synthroid was down titrated as an outpatient from 150 mcg 10/21 to 137 mcg 01/20, 125mcg 04/22, 112 mcg 06/22. TSH remains borderline suppressed, will hold x1 and resume at 100 mcg 09/13 (3) Pernicious anemia: - Continue outpatient monthly B12 supplementation. Hemoglobin 15.9, normocytic on admit Plan DVT prophylaxis: Lovenox Disposition: PCU CODE STATUS: Full code Diet: Clears pending echo and evaluation for EP followup study Total Time Total Time Spent Total Time Spent (In Minutes): 35 Discharge Plan Discharge Items Patient Disposition: Home - Self-Care Reason For Visit: WIDE COMPLEX TACHYCARDIA Discharge Diagnosis: wide complex tachycardia Activity: Per Instructions section Activity Comment: No strenous activity Non-emergency contact: Primary Care Provider and See Supervisor Call non-emergency contact if: you have any medication questions Follow-up/Referrals: Jerrell Noble MD [Physician] - 10/13/23 10:30 am Anselmo Huffman MD [Primary Care Provider] - 09/23/23 9:00 am Diet: Regular Addtl Attending Provider Instructions: Please make appointment to follow up with Dr Noble Pending Studies at Discharge: No Stand-Alone Forms: [facility] [employer], Smoking Cessation Medications and DC Order Prescriptions: New metoprolol succinate 50 mg tablet extended release 24 hr 50 mg PO DAILY Qty: 30 0RF Continued fluticasone propionate 50 mcg/actuation spray,suspension 2 spray intranasal DAILY Qty: 15.8 6RF Rx Instructions: not able to verify administer 2 sprays into each nostril daily ferrous sulfate [FeroSul] 325 mg (65 mg iron) tablet 325 mg PO PM Rx Instructions: not able to verify B-12 Compliance 1,000 mcg/mL kit 1,000 mcg IM MONTHLY azelastine 137 mcg (0.1 %) aerosol,spray 1 spray INTNAS BID PRN (Reason: Other) levothyroxine 112 mcg tablet 112 mcg PO DAILY trazodone 50 mg tablet 25 mg PO HS PRN (Reason: INSOMNIA ) Discharge Orders: Discharge Order (Routine); Ordered 09/13/23 Ordered By: Parveen Harris Admission Data Admit Date/Time: 09/12/23 11:38 Attending Provider: Parveen Harris Admit Provider: Hero Harrison Primary Care Provider: Anselmo Huffman Other Providers: Hero Harrison; Jamaal,Jeffery F. Other Interventions: Discharge Summary Assessment (RN) Last Done: 09/13/23 11:33 Coding Level of Care Code 99253 INP/OBS DISCH >30 MIN Diagnoses Wide-complex tachycardia R00.0 Hypothyroidism E03.9 Pernicious anemia D51.0 Time Spent (min) 35
--- NOTE | 2023-09-13 15:43 | Cardiology Consultation ---
Date of Consultation September 13, 2023 Assessment & Plan (1) Ventricular tachycardia: 1. Ventricular tachycardia: Her ventricular tachycardia appears to originate in the right ventricular outflow tract, this can sometimes be associated with right ventricular abnormalities however these were not seen on echocardiography but that is not accurate. A cardiac MRI may be indicated but we do not do those at our institution. Ablation is likely a good alternative for her, she does not seem to have clear structural heart disease, has a very rapid and symptomatic arrhythmia and may have had only one episode although it is possible she has brief asymptomatic episodes since she tolerates it very well and is relatively asymptomatic initially. We need to perform monitoring to see whether she has background ectopy, I would like to wait several days to let the amiodarone metabolize and we are going to start low-dose beta-blockade (metoprolol succinate 50 mg daily). I will arrange the Holter monitor through our office for later this week. I am going to arrange referral to [facility] for consideration of ablation or further diagnostic studies. 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 From the cardiovascular standpoint she has done very well, she has not had difficulty with exertion or chest discomfort however developed sudden onset of palpitations while she was getting ready to go to work (not while exercising) and on her Fitbit noted that her heart rate was over 200 bpm. This remained and she came into the emergency room on the morning of September 12, 2023. Her initial electrocardiogram showed a wide-complex tachycardia at 209 bpm, it was a left bundle inferiorly directed arrhythmia which based on morphology was likely a right ventricular outflow tract origin. The arrhythmia was sustained, preparations were being made to electrically convert when the rhythm stopped spontaneously. She was however given intravenous amiodarone and in the emergency room for short time she had frequent premature ventricular beats of the same morphology. She has no prior history of these symptoms, however she was not terribly symptomatic with it. She became aware of it over some period of time is therefore possible she has brief episodes that she is unaware of. She did not have presyncope or syncope with it however was dizzy. She does have a history of hypothyroidism and is on thyroid replacement, otherwise she has little in the way of health issues. She has been active recently with no change in her exercise ability. An echocardiogram done on the afternoon September 12, 2023 shows low normal left ventricular function with ejection fraction of 50 to 55% and normal right ventricular size and function. No valvular abnormalities. A troponin done in the emergency room was normal. Allergies Allergy/AdvReac Type Severity Reaction Status Date / Time Sulfa (Sulfonamide Allergy Verified 05/12/22 07:49 Antibiotics) Home Medications Medication Instructions Recorded Confirmed Type cyanocobalamin (vitamin B-12) 1,000 mcg IM MONTHLY 10/10/19 09/12/23 History 1,000 mcg/mL injection kit (B-12 Compliance) ferrous sulfate 325 mg (65 mg 325 mg PO PM 10/10/19 02/12/22 History iron) tablet (FeroSul) azelastine 137 mcg (0.1 %) nasal 1 spray intranasal BID PRN Other 11/19/19 09/12/23 History spray aerosol fluticasone propionate 50 2 spray intranasal DAILY #15.8 mL 05/20/21 02/12/22 Rx mcg/actuation nasal spray,suspension levothyroxine 112 mcg tablet 112 mcg PO DAILY 09/12/23 09/12/23 History trazodone 50 mg tablet 25 mg PO HS PRN INSOMNIA 09/12/23 09/12/23 History metoprolol succinate 50 mg 50 mg PO DAILY #30 tabs 09/13/23 Rx tablet,extended release 24 hr Patient History Medical History Temporomandibular joint disorder Slow to wake up after anesthesia WITH SEVERE HEADACHE AFTERWARDS Hypothyroidism Migraine Surgical History History of sinus surgery left maxillary antrostomy with tissue removal-11/23/19-Dr. Umana History of colonoscopy History of hysteroscopy With endometrial ablation History of surgery Excision of finger flexor tendon LEFT HAND Family History Father Hearing loss Mother Hypertension Cancer Breast and malignant neoplasm Allergies Other No family history of bleeding disorder Social History Smoking Status: Never smoker Second Hand Exposure: No; Do You Dip or Chew Tobacco: No; Hx Alcohol Use: No Hx Substance Use: No Preferred Language: Danish Communication Ability: Effective Change Room Attendant Required: No Beliefs That Will Affect Care: None Current Living Situation: Spouse current occupational status: employed 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 HEENT: Unremarkable Neck: No jugular venous distention, carotid pulses are normal and equal bilaterally without bruits. Pulmonary: Clear to auscultation bilaterally. Cardiac: Regular rhythm with no murmur, gallop or rub. Abdomen: Soft, nontender with normal bowel sounds. Extremities: No edema. Distal pulses intact. Neurologic: No focal findings. Gait is steady. Skin: No rash, ecchymoses or petechiae. Results & Data Vital Signs (Past 12 Hours) Vital Signs Temp Pulse Pulse Resp BP BP Pulse Ox 09/13/23 11:33 37.0 C 59 L 18 111/71 111/80 98 09/13/23 10:07 58 L 09/13/23 07:57 37.0 C 59 L 18 111/80 98 09/13/23 04:32 36.7 C 57 L 14 111/71 98 O2 Del Method 09/13/23 11:33 09/13/23 10:07 09/13/23 07:57 Room Air 09/13/23 04:32 Room Air Laboratory Results CBC 09/13/23 Range/Units 07:19 WBC 4.93 (4.8-10.8) K/ul RBC 4.95 (4.20-5.40) M/uL Hgb 14.3 (12.0-16.0) g/dl Hct 43.5 (37.0-47.0) % Plt Count 200 (130-400) K/uL Neut # (Auto) 3.17 (1.40-6.50) K/uL Lymph # (Auto) 1.22 (1.20-3.40) K/uL [place] # (Auto) 0.41 (0.11-0.59) K/uL Eos # (Auto) 0.07 (0.00-0.50) K/uL Baso # (Auto) 0.05 (0.00-0.20) K/uL Comprehensive Metabolic Panel 09/13/23 Range/Units 07:19 Sodium 142 (136-145) mmol/L Potassium 3.9 (3.5-5.1) mmol/L Chloride 109 H (98-107) mmol/L Carbon Dioxide 28 (21-32) mmol/L BUN 16 (6-23) mg/dl Creatinine 0.82 (0.6-1.2) mg/dl Glucose 83 (70-99(Fasting)) mg/dl Calcium 9.5 (8.6-10.3) mg/dl Diagnostic Findings Telemetry: Initially ventricular tachycardia, for a short time frequent prematur e ventricular beats and after that no significant ventricular ectopy at all. PG Care Time/CCT Total # of Minutes Spent Total Time Spent with Patient: Total time spent is greater than 50% in coordination of care (as documented) at patient's floor/unit and/or counseling patient: Coding Level of Care Code 67843 IN/OBS CONSULT LVL 4,60M Diagnoses Ventricular tachycardia I47.20
--- OUTSIDE RECORDS SUMMARY | 2023-09-14 09:40 | External Medical Summary | Continuity of Care Document ---
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 Role Phone Anselmo Huffman Primary Care Physician [phone] [id number] Date(s): 04/05/23 - 04/05/23 [facility] [address] [facility] 303 [facility] 1 [place], [place] [phone] Encounter Diagnosis Hypothyroidism, unspecified(Final) - Discharge Disposition: Home or Self Care Attending Physician: MD Huffman Christopher Referring Physician: MD Huffman Christopher Allergies, Adverse Reactions, Alerts Substance Reaction Severity Status sulfa drugs rash Active Immunizations Given and Recorded Vaccine Date Status Refusal Reason influenza virus vaccine, inactivated 07/31/22 Fer rded influenza virus vaccine, inactivated 08/26/21 Give n influenza virus vaccine, inactivated 1 08/19/20 Re corded influenza virus vaccine, inactivated 12/05/19 Give n influenza virus vaccine, inactivated 09/06/16 Give n SARS-CoV-2 mRNA (Pfizer 12+) bivalent 2 07/19/22 R ecorded SARS-CoV-2 (COVID-19) mRNA-1273 vaccine 3 09/21/21 Recorded SARS-CoV-2 (COVID-19) mRNA-1273 vaccine 01/22/21 R ecorded SARS-CoV-2 (COVID-19) mRNA-1273 vaccine 12/24/20 R ecorded zoster vaccine, inactivated 08/26/21 Given zoster vaccine, inactivated 4 05/15/20 Given measles/mumps/rubella virus vaccine 05/15/20 Given tetanus/diphtheria/pertuss, acel (Tdap) 06/28/18 G iven tetanus toxoids-diphtheria, Td (Adult) 02/03/07 Re corded 1Result Comment: [facility] Elif Holt 2Result Comment: 2023-01-10: Historical information-source unspecified 3Result Comment: 2023-01-10: Historical information-source unspecified 4Result Comment: Suspension 5TH3L 09/18/21 Medications azelastine 205.5 mcg/inh (0.15%) nasal spray Start: 03/18/23 9:49:00 EDT, See Instructions, Disp# 30 unknown unit, Refills: 1, ADMINISTER 1 SPRAY IN EACH NOSTRIL TWICE A DAY NEEDED FOR ALLERGY SYMPTOMS FOR 30 DAYS, Pharmacy: [id number] Start Date: 03/18/23 Status: Ordered Claritin-D 24 Hour oral tablet, extended release Start: 07/04/18 14:12:00 EDT, 1 tab, PO, Daily, Disp# 90 tab, Refills: 3, PRN: as needed for allergy symptoms, [id number] Start Date: 07/04/18 Status: Ordered cyanocobalamin 1000 mcg/mL injectable solution Start: 10/14/22 11:27:00 EST, See Instructions, Disp# 3 mL, Refills: 3, INJECT 1ML INTO SKIN EVERY 30 DAYS, [id number] Start Date: 10/14/22 Status: Ordered fluticasone 50 mcg/inh nasal spray See Instructions, Disp# 48 mL, Refills: 3, SPRAY 1 SPRAY IN EACH NOSTRIL DAILY, Pharmacy: [facility] [id number], 174.2, cm, 05/15/20 7:56:00 EDT, Height Start Date: 06/13/20 Status: Ordered Imitrex 25 mg oral tablet Start: 02/28/19 11:43:00 EDT, 1 tab, PO, ONCE, Disp# 9 tab, PRN: as needed for migraine headache Start Date: 02/28/19 Status: Ordered Iron Chews Start: 05/10/17 9:00:00 Start Date: 05/10/17 Status: Ordered levothyroxine 125 mcg (0.125 mg) oral tablet Start: 04/07/23 19:05:00 EDT, 1 tab, PO, Daily, Disp# 90 tab, Refills: 1, Pharmacy: [facility] #[id number] Start Date: 04/07/23 Stop Date: 10/04/23 Status: Ordered traZODone 50 mg oral tablet Start: 01/10/23 15:30:00 EDT, 0.5 tab, PO, qhs, Disp# 45 tab, Refills: 1, PRN: insomnia, Pharmacy: [id number] Start Date: 01/10/23 Stop Date: 07/09/23 Status: Ordered Problem List Condition Confirmation Course Effective Dates Status Health St atus Informant TMJ arthritis Confirmed Active Hypothyroidism Confirmed Active Iron deficiency Confirmed Active Anemia, pernicious Confirmed Active Anemia, pernicious Confirmed Active Procedures Procedure Date Related Diagnosis Body Site Status Mammogram 1 04/13/21 Completed Mammogram - screening 2 04/06/18 C ompleted Hysterectomy and bilateral salpingo-oophorectomy sample 3 09/30/15 C ompleted Colonoscopy 4 05/23/15 Completed Tendon repair by distal insertion 5 Completed 1[facility] facility recommends a yearly mammogram on all women above the age of 40 2Negative 3removed cervix 4Mild to moderate diverticular disease. No polyps or masses. 5L flexor tendon (1st digit) Results Laboratory List Name Date Thyroid Stimulating Hormone (TSH) 04/05/23 Most recent to oldest [Reference Range]: 1 TSH [0.47-4.68 uIU/mL] 0.05 uIU/mL 1 *LOW* (04/05/23 8:41 AM) 1Result Comment: Testing Performed By: Dept of Pathology [facility] [address], [address] [facility], [place] [address] Social History Social History Type Response Smoking Status Never smoked cigaret ozzy Sex Female Patient Care team information Care Team Personnel Name: MD Huffman Christopher Position: Physician - Family Med Member Role: Primary Care Provider Address: Address: [address] [place] [id number] [place] Care Team Related Persons Name: THEO GUTIERREZ Address: home [address] [place], [place] [phone] Name: THEO GUTIERREZ Address: home [address] [place], [place] [id number]
--- OUTSIDE RECORDS SUMMARY | 2023-09-14 09:40 | External Medical Summary | Continuity of Care Document ---
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 Phone Anselmo Huffman Primary Care Physician [phone] Encounter [facility] [id number] Date(s): 06/27/23 - 06/27/23 [facility] [address] [address] [phone] Encounter Diagnosis Chronic insomnia(Discharge Diagnosis) - 06/27/23 Hypothyroidism(Discharge Diagnosis) - 06/27/23 Hip pain, right(Discharge Diagnosis) - 06/27/23 Body mass index [BMI] 22.0-22.9, adult(Discharge Diagnosis) - 06/27/23 Hypothyroidism, unspecified(Final) - Discharge Disposition: Home or Self Care Attending Physician: MD Huffman Christopher Allergies, Adverse Reactions, Alerts Substance Reaction Severity Status sulfa drugs rash Active Assessment and Plan Extracted from: Title:FCM - thyroid, gluteal pain, sleep Author: MD Huffman Christopher Date:06/27/23 1.Chronic insomnia Chronic condition, stable Goal:maintain goodsleep Data:non Plan: - encourage good sleep hygeine and consider re-addition of trazodone based on ability to adhere 2.Hypothyroidism Chronic condition exacerbated/progressive/side effects of treatment Goal:~1 TSH Data:TSH Plan: - will recheck TSH and consider titration of levothyroxine based on results, likely down titrate with goal of 1 3.Hip pain, right Chronic condition, stable Goal:resolution Data:none Plan: - encourage engage w/ PT exercise and avoid worsening symptoms if able Immunizations Given and Recorded Vaccine Date Status Refusal Reason influenza virus vaccine, inactivated 07/31/22 Fer rded influenza virus vaccine, inactivated 08/26/21 Give n influenza virus vaccine, inactivated 1 08/19/20 Re corded influenza virus vaccine, inactivated 12/05/19 Give n influenza virus vaccine, inactivated 09/06/16 Give n SARS-CoV-2 mRNA ([facility] 12+) bivalent 2 07/19/22 R ecorded SARS-CoV-2 (COVID-19) mRNA-1273 vaccine 3 09/21/21 Recorded SARS-CoV-2 (COVID-19) mRNA-1273 vaccine 01/22/21 R ecorded SARS-CoV-2 (COVID-19) mRNA-1273 vaccine 12/24/20 R ecorded zoster vaccine, inactivated 08/26/21 Given zoster vaccine, inactivated 4 05/15/20 Given measles/mumps/rubella virus vaccine 05/15/20 Given tetanus/diphtheria/pertuss, acel (Tdap) 06/28/18 G iven tetanus toxoids-diphtheria, Td (Adult) 02/03/07 Re corded 1Result Comment: [facility] Elif Holt 2Result Comment: 2023-01-10: Historical information-source unspecified 3Result Comment: 2023-01-10: Historical information-source unspecified 4Result Comment: Suspension 5TH3L 09/18/21 Medications azelastine 205.5 mcg/inh (0.15%) nasal spray Start: 03/18/23 9:49:00 EDT, See Instructions, Disp# 30 unknown unit, Refills: 1, ADMINISTER 1 SPRAY IN EACH NOSTRIL TWICE A DAY NEEDED FOR ALLERGY SYMPTOMS FOR 30 DAYS, Pharmacy: [facility] ST[id number] Start Date: 03/18/23 Status: Ordered cyanocobalamin 1000 mcg/mL injectable solution Start: 10/14/22 11:27:00 EST, See Instructions, Disp# 3 mL, Refills: 3, INJECT 1ML INTO SKIN EVERY 30 DAYS, Pharmacy: [facility]/pharmacy #[id number] Start Date: 10/14/22 Status: Ordered fluticasone 50 mcg/inh nasal spray See Instructions, Disp# 48 mL, Refills: 3, SPRAY 1 SPRAY IN EACH NOSTRIL DAILY, Pharmacy: [facility] [id number], 174.2, cm, 05/15/20 7:56:00 EDT, Height Start Date: 8/14/20 Status: Ordered Imitrex 25 mg oral tablet Start: 02/28/19 11:43:00 EDT, 1 tab, PO, ONCE, Disp# 9 tab, PRN: as needed for migraine headache Start Date: 02/28/19 Status: Ordered Iron Chews Start: 05/10/17 9:00:00 Start Date: 05/10/17 Status: Ordered levothyroxine 112 mcg (0.112 mg) oral tablet Start: 06/28/23 16:08:00 EDT, 1 tab, PO, Daily, Disp# 90 tab, Refills: 1, Pharmacy: [facility]/pharmacy #[id number] Start Date: 06/28/23 Stop Date: 12/25/23 Status: Ordered Mental Status 06/27/23 Barriers to Learning one year None evide nt Mandatory Health Literacy Documentation Yes Health Literacy Communication Barriers N ever Primary Language Danish Problem List Condition Confirmation Course Effective Dates Status Health St atus Informant TMJ arthritis Confirmed Active Hypothyroidism Confirmed Active Iron deficiency Confirmed Active Anemia, pernicious Confirmed Active Anemia, pernicious Confirmed Active Diagnosis Diagnosis Type Effective Dates Health Status Clinical Service Informant Hip pain, right Discharge Diagnosis 06/27/23 Hypothyroidism Discharge Diagnosis 06/27/23 Chronic insomnia Discharge Diagnosis 06/27/23 Body mass index [BMI] 22.0-22.9, adult Discharge Diagnosis 06/27/23 Non-Specified Procedures Procedure Date Related Diagnosis Body Site Status Mammogram 1 04/13/21 Completed Mammogram - screening 2 04/06/18 C ompleted Hysterectomy 09/30/15 Completed Hysterectomy and bilateral salpingo-oophorectomy sample 3 09/30/15 C ompleted Colonoscopy 4 05/23/15 Completed Tendon repair by distal insertion 5 Completed 1[facility] facility recommends a yearly mammogram on all women above the age of 40 2Negative 3removed cervix 4Mild to moderate diverticular disease. No polyps or masses. 5L flexor tendon (1st digit) Vital Signs Most recent to oldest [Reference Range]: 1 Height 173 cm (06/27/23 2:58 PM) Patient Weight 66.4 kg (06/27/23 2:58 PM) Body Mass Index 22.19 kg/m2 (06/27/23 2:58 PM) Temperature [36.5-37.9 DegC] 36.7 DegC (06/27/23 2:58 PM) Respiratory Rate 20 br/min (06/27/23 2:58 PM) Blood Pressure 120/70mmHg (06/27/23 2:58 PM) Cuff Pulse Pressure 50 mmHg (06/27/23 2:58 PM) BP Location # 1 Right Arm (06/27/23 2:58 PM) Social History Social History Type Response Smoking Status Never smoked cigaret ozzy Sex Female FCM Outpt Note * MD Nathanael, Anselmo: PERFORM Event Display: FCM Outpt Note Authored Date: [id number] Chief Complaint Pt is here for 3-4 month f/u on her thyroid. No new concerns. History of Present Illness Hypothyroidism w/ last TSH in Mar of 0.05 (L) h/o pernicious anemia w/ nl CBC in December 2022 The patient is a 57-year-old female who presents for evaluation of multiple medical concerns. She is sleeping okay. She is taking melatonin. She sleeps well for the first 3 hours. The more she exercises, the better off she is. She is tolerating Her medial glutes on the right side are doing good. She does not do lateral movements or lateral strength anymore which has been the problem. She was set up with some exercise. She has been about 75 percent adherent with it. She is able to run and exercise for her stress reduction. She denies any trouble with being tired during the day. She has gained 2 pounds. She had her mammogram on Tuesday, and it was fine. She denies any swelling, lumps, or bumps. Physical Exam Vitals & Measurements T:36.7C RR:20 BP:120/70 SpO2:98% HT:173cm WT:66.400kg(Dosing) WT:66.4kg BMI:22.19 PHQ2 Data(Data Documented on:06/27/2023 14:56) Emotional health assessment NEGATIVE General: _Alert and oriented, No acute distress Cardiovascular: _Normal rate, Regular rhythm, No murmur, No gallop. Respiratory: _Lungs are clear to auscultation, Respirations are non-labored, Breath sounds are equal Psych: Mood-affect congruence. Reports no SI/HI. Speech is of normal pace and content HEENT: _ Normocephalic, TM clear, Nl gross hearing, moist oral mucosa _ Assessment/Plan 1.Chronic insomnia Chronic condition, stable Goal:maintain goodsleep Data:non Plan: - encourage good sleep hygeine and consider re-addition of trazodone based on ability to adhere 2.Hypothyroidism Chronic condition exacerbated/progressive/side effects of treatment Goal:~1 TSH Data:TSH Plan: - will recheck TSH and consider titration of levothyroxine based on results, likely down titrate with goal of 1 3.Hip pain, right Chronic condition, stable Goal:resolution Data:none Plan: - encourage engage w/ PT exercise and avoid worsening symptoms if able Problem List/Past Medical History Ongoing Anemia, pernicious Anemia, pernicious Hypothyroidism Iron deficiency TMJ arthritis Historical Neck muscle strain Neck pain Procedure/Surgical History Mammogram (04/13/2021)Mammogram - screening (04/06/2018)Hysterectomy and bilateral salpingo-oophorectomy sample (09/30/2015)Hysterectomy (09/30/2015)Colonoscopy (05/23/2015)Tendon repair by distal insertion Medications azelastine nasal(azelastine 205.5 mcg/inh (0.15%) nasal spray), See Instructions carbonyl iron(Iron Chews) cyanocobalamin(cyanocobalamin 1000 mcg/mL injectable solution), See Instructions, 3 refills fluticasone nasal(fluticasone 50 mcg/inh nasal spray), See Instructions levothyroxine(levothyroxine 125 mcg (0.125 mg) oral tablet), 125 mcg= 1 tab, PO, Daily, 1 refills SUMAtriptan(Imitrex 25 mg oral tablet), 25 mg= 1 tab, PO, ONCE, PRN Allergies sulfa drugsrash Social History Smoking Status Never smoked cigarettes Alcohol - Low Risk Use:Current Frequency:1-2 times per year Has alcohol use interfered with work or home life:No Do you ever drink more than intended:No Has anyone been hurt or at risk by your drinking:No Concerns about alcohol use in household:No 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 Cardiovascular disease: Mother. Hypertension: Mother. Immune defect: Father. Health Status Family Member(s) Immunizations Vaccine Date Status influenza virus vaccine, inactivated 07/31/2022 Recorded SARS-CoV-2 mRNA (Pfizer 12+) bivalent 07/19/2022 Recorded Comments : 2023-01-10: Historical information-source unspecified SARS-CoV-2 (COVID-19) mRNA-1273 vaccine 09/21/2021 Recorded Comments : 2023-01-10: Historical information-source unspecified influenza virus vaccine, inactivated 08/26/2021 Given zoster vaccine, inactivated 08/26/2021 Given SARS-CoV-2 (COVID-19) mRNA-1273 vaccine 01/22/2021 Recorded SARS-CoV-2 (COVID-19) mRNA-1273 vaccine 12/24/2020 Recorded influenza virus vaccine, inactivated 08/19/2020 Recorded Comments : [facility] [address] zoster vaccine, inactivated 05/15/2020 Given Comments : Suspension 5TH3L 09/18/21 measles/mumps/rubella virus vaccine 05/15/2020 Given influenza virus vaccine, inactivated 12/05/2019 Given tetanus/diphtheria/pertuss, acel (Tdap) 06/28/2018 Given influenza virus vaccine, inactivated 09/06/2016 Given tetanus toxoids-diphtheria, Td (Adult) 02/03/2007 Recorded Recommendations Health Maintenance Pending(in the next year) OverDue Adult Influenza Vaccine due04/30/23and every 1year Due Adult COVID-19 Vaccination due06/27/23Unknown Frequency Due In Future Lipid Screening not due until01/15/24and every 1year Breast Cancer Screening not due until06/11/24and every 731day Body Mass Index not due until06/26/24and every 1year Satisfied(in the past 1 year) Satisfied Adult COVID-19 Vaccination on07/19/22.Satisfied by MD Huffman Christopher Adult Influenza Vaccine on07/31/22.Satisfied by MD Huffman Christopher Body Mass Index on06/27/23.Satisfied by ANGELA Benitez Paula Lipid Screening on01/14/23.Satisfied by Contributor_system, [id number] Electronic Signature on File Electronically Reviewed/Signed by: Anselmo Huffman MD Author Signature Dt/Tm:06/27/2023 03:55 PM Department of Family Medicine Patient Care team information Care Team Personnel Name: MD Nathanael, Anselmo Position: Physician - Family Med Member Role: Primary Care Provider Address: Address: [address] [place] [address] Care Team Related Persons Name: THEO GUTIERREZ Address: home [address] [place] [phone] Name: THEO GUTIERREZ Address: home [address] [place] [phone]
--- OUTSIDE RECORDS SUMMARY | 2023-09-14 09:40 | External Medical Summary | Continuity of Care Document ---
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 Role Phone Anselmo Huffman Primary Care Physician [phone] [facility] [id number] Date(s): 08/03/23 - 08/03/[address] [address] [phone] Encounter Diagnosis Body mass index [BMI] 21.0-21.9, adult(Discharge Diagnosis) - 08/03/23 Sinusitis(Discharge Diagnosis) - 08/03/23 Discharge Disposition: Home or Self Care Attending Physician: MD Taylor Juan Allergies, Adverse Reactions, Alerts Substance Reaction Severity Status sulfa drugs rash Active Assessment and Plan Extracted from: Title:Office Visit Note Author:MD Taylor Juan Quan e:08/03/23 1.Sinusitis Rx augmentin 875mg BID x 10 days. Immunizations Given and Recorded Vaccine Date Status [...] Td (Adult) 02/03/07 Re corded 1Result Comment: TRIPP Elif Holt 2Result Comment: 2023-01-10: Historical information-source unspecified 3Result Comment: 2023-01-10: Historical information-source unspecified 4Result Comment: Suspension 5TH3L 09/18/21 Medications Augmentin 875 mg-125 mg oral tablet Start: 08/03/23 14:41:00 EDT, amoxicillin 1 tab, PO, q12h, Disp# 20, Refills: 0, with food or milk,Pharmacy: [facility]/pharmacy #[id number] Start Date: 08/03/23 Stop Date: 08/13/23 Status: Ordered azelastine 205.5 mcg/inh (0.15%) nasal spray Start: 03/18/23 9:49:00 EDT, See Instructions, Disp# 30 unknown unit, Refills: 1, ADMINISTER 1 SPRAY IN EACH NOSTRIL TWICE A DAY NEEDED FOR ALLERGY SYMPTOMS FOR 30 DAYS, Pharmacy: [facility] STORE [id number] Start Date: 03/18/23 Status: Ordered cyanocobalamin 1000 mcg/mL injectable solution Start: 10/14/22 11:27:00 EST, See Instructions, Disp# 3 mL, Refills: 3, INJECT 1ML INTO SKIN EVERY 30 DAYS, Pharmacy: [facility]/pharmacy #[id number] Start Date: 10/14/22 Status: Ordered fluticasone 50 mcg/inh nasal spray See Instructions, Disp# 48 mL, Refills: 3, SPRAY 1 SPRAY IN EACH NOSTRIL DAILY, Pharmacy: [facility] [id number], 174.2, cm, 05/15/20 7:56:00 EDT, Height Start Date: 06/13/20 Status: Ordered levothyroxine 112 mcg (0.112 mg) oral tablet Start: 06/28/23 16:08:00 EDT, 1 tab, PO, Daily, Disp# 90 tab, Refills: 1, Pharmacy: [facility]/pharmacy #[id number] Start Date: 06/28/23 Stop Date: 12/25/23 Status: Ordered Mental Status 08/03/23 Barriers to Learning one year None evide nt Mandatory Health Literacy Documentation Yes Health Literacy Communication Barriers N ever Primary Language Malagasy Problem List Condition Confirmation Course Effective Dates Status Health St atus Informant TMJ arthritis Confirmed Active Hypothyroidism Confirmed Active Iron deficiency Confirmed Active Anemia, pernicious Confirmed Active Anemia, pernicious Confirmed Active Diagnosis Diagnosis Type Effective Dates Health Status Cl inical Service Informant Sinusitis Discharge Diagnosis 08/03/23 Body mass index [BMI] 21.0-21.9, adult Discharge Diagnosis 08/03/23 Non-Specified Procedures Procedure Date Related Diagnosis Body Site Status Mammogram 1 04/13/21 Completed Mammogram - screening 2 04/06/18 C ompleted Hysterectomy 09/30/15 Completed Hysterectomy and bilateral salpingo-oophorectomy sample 3 09/30/15 C ompleted Colonoscopy 4 05/23/15 Completed Tendon repair by distal insertion 5 Completed 1[facility] facility recommends a yearly mammogram on all women above the age of 40 2Negative 3removed cervix 4Mild to moderate diverticular disease. No polyps or masses. 5L flexor tendon (1st digit) Vital Signs Most recent to oldest [Reference Range]: 1 Height 173 cm (08/03/23 2:26 PM) Patient Weight 65.6 kg (08/03/23 2:26 PM) Body Mass Index 21.92 kg/m2 (08/03/23 2:26 PM) Heart Rate 88 bpm (08/03/23 2:26 PM) Respiratory Rate 18 br/min (08/03/23 2:26 PM) Blood Pressure 108/80mmHg (08/03/23 2:26 PM) Social History Social History Type Response Smoking Status Never smoked cigaret ozzy Sex Female FCM Outpt Note * MD Taylor Juan: PERFORM Event Display: FCM Outpt Note Authored Date: [id number] Chief Complaint Last Tuesday started with sorethroat, negative COVID tests, cold symptoms. Sinus pressure, sinus headache, full sinuses. History of Present Illness 1 week agostarted with sore throat and cold symptoms, had fever. negative COVID tests several times. Still sinus pressure, sinus headache, full sinuses. + sinus pain especially when bending forward. Unable to sleep. getting worse especially in night. still a little cough. Physical Exam Vitals & Measurements HR:88(Monitored) RR:18 BP:108/80 SpO2:98% HT:173cm WT:65.600kg(Dosing) WT:65.6kg BMI:21.92 PHQ2 Data(Data Documented on:08/03/2023 14:26) Emotional health assessment NEGATIVE GENERAL: A&Ox3. No acute distress. Affect and speech appropriate. HEENT: PERRLA, EOMI, Conjunctivae clear. Oropharynx clear with post nasal drip. TM clear. Nose congested. + sinus tenderness. NECK: Supple, No lymphadenopathy. HEART: RRR, normal S1, S2. No murmurs, gallops or clicks. LUNGS: breathing not labored, breathing sound clear, breathing sound equal bilaterally, no rales, no wheezing. Assessment/Plan 1.Sinusitis Rx augmentin 875mg BID x 10 days. Problem List/Past Medical History Ongoing Anemia, pernicious Anemia, pernicious Hypothyroidism Iron deficiency TMJ arthritis Historical Neck muscle strain Neck pain Procedure/Surgical History Mammogram (04/13/2021)Mammogram - screening (04/06/2018)Hysterectomy and bilateral salpingo-oophorectomy sample (09/30/2015)Hysterectomy (09/30/2015)Colonoscopy (05/23/2015)Tendon repair by distal insertion Medications amoxicillin-clavulanate(Augmentin 875 mg-125 mg oral tablet), 1 tab, PO, q12h azelastine nasal(azelastine 205.5 mcg/inh (0.15%) nasal spray), See Instructions cyanocobalamin(cyanocobalamin 1000 mcg/mL injectable solution), See Instructions, 3 refills fluticasone nasal(fluticasone 50 mcg/inh nasal spray), See Instructions levothyroxine(levothyroxine 112 mcg (0.112 mg) oral tablet), 112 mcg= 1 tab, PO, Daily, 1 refills Allergies sulfa drugsrash Social History Smoking Status Never smoked cigarettes Alcohol - Low Risk Use:Current Frequency:1-2 times per year Has alcohol use interfered with work or home life:No Do you ever drink more than intended:No Has anyone been hurt or at risk by your drinking:No Concerns about alcohol use in household:No 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 Exercise Times per week:5-6 times/week Self assessment:Good condition Exercise type:Aerobics, Running - 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, 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 Nutrition/Health Diet description:exercises to eat Type of [...] inactivated 08/19/2020 Recorded Comments : [facility] zoster vaccine, inactivated 05/15/2020 Given Comments : Suspension 5TH3L 09/18/21 measles/mumps/rubella virus vaccine 05/15/2020 Given influenza virus vaccine, inactivated 12/05/2019 Given tetanus/diphtheria/pertuss, acel (Tdap) 06/28/2018 Given influenza virus vaccine, inactivated 09/06/2016 Given tetanus toxoids-diphtheria, Td (Adult) 02/03/2007 Recorded Recommendations Health Maintenance Pending(in the next year) OverDue Adult Influenza Vaccine due04/30/23and every 1year Due Adult COVID-19 Vaccination due08/03/23Unknown Frequency Due In Future Lipid Screening not due until01/15/24and every 1year Body Mass Index not due until08/02/24and every 1year Satisfied(in the past 1 year) Satisfied Body Mass Index on08/03/23.Satisfied by KARINE Monroe Jenna Breast Cancer Screening on06/24/23.Satisfied by ANGELA Gonzalez Lynnae Lipid Screening on01/14/23.Satisfied by Contributor_system, [employer] Electronic Signature on File Electronically Reviewed/Signed by: Jaya Taylor MD Author Signature Dt/Tm:08/03/2023 02:43 PM Department of Family Medicine [facility] Patient Care team information Care Team Personnel Name: MD Huffman Christopher Position: Physician - Family Med Member Role: Primary Care Provider Address: Address: [address] [place] [address] Care Team Related Persons Name: THEO GUTIERREZ Address: home [address] [place] [phone] Name: THEO GUTIERREZ Address: home [address] [place] [phone]
--- OUTSIDE RECORDS SUMMARY | 2023-09-14 09:40 | External Medical Summary | Continuity of Care Document ---
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 Name Role Phone Anselmo Huffman Primary Care Physician [phone] Encounter [facility] [id number] Date(s): 06/28/23 - 06/28/23 [facility] [address] [place] [address] Medical [facility] [address] [address] [phone] Encounter Diagnosis Hypothyroid(Discharge Diagnosis) - 06/28/23 Discharge Disposition: Home or Self Care Attending [...] Td (Adult) 02/03/07 Re corded 1Result Comment: [facility] Elif Holt 2Result Comment: 2023-01-10: Historical information-source unspecified 3Result Comment: 2023-01-10: Historical information-source unspecified 4Result Comment: Suspension 5TH3L 09/18/21 Medications azelastine 205.5 mcg/inh (0.15%) nasal spray Start: 03/18/23 9:49:00 EDT, See Instructions, Disp# 30 unknown unit, Refills: 1, ADMINISTER 1 SPRAY IN EACH NOSTRIL TWICE A DAY NEEDED FOR ALLERGY SYMPTOMS FOR 30 DAYS, Pharmacy: [email or web address] [id number] Start Date: 03/18/23 Status: Ordered cyanocobalamin 1000 mcg/mL injectable solution Start: 10/14/22 11:27:00 EST, See Instructions, Disp# 3 mL, Refills: 3, INJECT 1ML INTO SKIN EVERY 30 DAYS, Pharmacy: [facility]/pharmacy #[id number] Start Date: 10/14/22 Status: Ordered fluticasone 50 mcg/inh nasal spray See Instructions, Disp# 48 mL, Refills: 3, SPRAY 1 SPRAY IN EACH NOSTRIL DAILY, Pharmacy: [facility] [id number], 174.2, cm, 05/15/20 7:56:00 EDT, Height Start [...] Daily, Disp# 90 tab, Refills: 1, Pharmacy: [facility]/pharmacy #[id number] Start Date: 06/28/23 Stop Date: 12/25/23 Status: Ordered Problem List Condition Confirmation Course Effective Dates Status Health St atus Informant TMJ arthritis Confirmed Active Hypothyroidism Confirmed Active Iron deficiency Confirmed Active Anemia, pernicious Confirmed Active Anemia, pernicious Confirmed Active Diagnosis Diagnosis Type Effective Dates Health Status Clini kaykay Service Informant Hypothyroid Discharge Diagnosis 06/28/23 Non-Specified Procedures Procedure Date Related Diagnosis Body Site Status Mammogram 1 04/13/21 Completed Mammogram - screening 2 04/06/18 C ompleted Hysterectomy 09/30/15 Completed Hysterectomy and bilateral salpingo-oophorectomy sample 3 09/30/15 C ompleted Colonoscopy 4 05/23/15 Completed Tendon repair by distal insertion 5 Completed 1[facility] facility recommends a yearly mammogram on all women above the age of 40 2Negative 3removed cervix 4Mild to moderate diverticular disease. No polyps or masses. 5L flexor tendon (1st digit) Results Laboratory List Name Date Thyroid Stimulating Hormone (TSH) 3 Most recent to oldest [Reference Range]: 1 TSH [0.47-4.68 uIU/mL] 0.05 uIU/mL 1 *LOW* (06/28/23 9:12 AM) 1Result Comment: Testing Performed By: Dept of Pathology [facility] [address] [address], [address], [place] [address] Social History Social History Type Response Smoking Status Never smoked cigaret ozzy Sex Female Patient Care team information Care Team Personnel Name: MD Huffman Christopher Position: Physician - Family Med Member Role: Primary Care Provider Address: Address: [address] [place] [address] [address] [place] [address] Care Team Related Persons Name: THEO GUTIERREZ Address: home [address], [place] [phone] Name: THEO GUTIERREZ Address: home [address], [place] [phone]
[2023-09-15] MEDS ORDERED: LEVOTHYROXINE SODIUM 100 MCG TABLET PO SCH (06:30)
== END 2023-09-13 11:57 | disposition home or self-care (01) | DRG 310 ==
LOC: ED 09:47 → SUATTDRO 11:38 → EDINP 11:38 → 2S 14:06